=== PATIENT | male | born 1990 | race African-American/Black ===

== ENCOUNTER 2017-12-29 10:27 | Emergency (ER) | payer OTHER ==
[~2017-12-29] VITALS: Ht 180.3 cm; Wt 74.8 kg
[2017-12-29] MEDS ORDERED: IBUPROFEN 800800 MG PO (11:38)
[2017-12-29] MEDS ORDERED: MUPIROCIN22 GM TOP (11:38)
[2017-12-29 11:54] VITALS: BP 134/78
== END 2017-12-29 11:55 | disposition home or self-care (01) ==
LOC: ER 10:27
DX: L02.01 Cutaneous abscess of face (principal); F17.210 Nicotine dependence, cigarettes, uncomplicated

== ENCOUNTER 2019-06-29 15:15 | Emergency (ER) | payer OTHER ==
[~2019-06-29] VITALS: Ht 177.8 cm; Wt 86.2 kg
[2019-06-29 15:15] VITALS: BP 117/70
[~2019-06-29 15:15] MED LIST: IBUPROFEN 800800 MG PO; MUPIROCIN22 GM TOP
== END 2019-06-29 16:42 | disposition home or self-care (01) ==
LOC: ER 15:15
DX: S00.412A Abrasion of left ear, initial encounter (principal); F17.210 Nicotine dependence, cigarettes, uncomplicated; W18.39XA Other fall on same level, initial encounter; Y92.89 Other specified places as the place of occurrence of the external cause; Y93.89 Activity, other specified; Y99.0 Civilian activity done for income or pay